=== PATIENT | male | born 1985 | race Hispanic/Latino ===

== ENCOUNTER 2017-06-02 07:15 | Observation (INO) | payer OTHER ==
[2017-06-02 07:21] VITALS: RESP 16; TEMP 97.6; BMI 23.3
[2017-06-02] MEDS ORDERED: Sodium Chloride 0.9% 1,000 ML IV STA ×2 (07:59→10:57)
--- NOTE | 2017-06-02 08:09 | ED PDOC ---
HPI: Back Time Seen by Provider: 06/02/17 07:20 Chief Complaint (Nursing): Back Pain Chief Complaint (Provider): Back Pain History Per: Patient History/Exam Limitations: no limitations Onset/Duration Of Symptoms: Days (x10) Additional Complaint(s): Tae Welch, 31 year old male with a medical history inclusive of left varicocele, presents to the ED with complaints of intermittent left flank pain occurring for 10 days prior to arrival. The patient also complains of urinary frequency, urinary urgency, and nausea. He denies vomiting, diarrhea, fever, genitourinary pain, hematuria, and has no past medical history of kidney stones. Of note, upon talking to the patient, he states his left flank pain is worsening. PMD: None provided Past Medical History Reviewed: Historical Data, Nursing Documentation, Vital Signs Vital Signs: Last Vital Signs Temp 97.6 F 06/02/17 07:20 Pulse 86 06/02/17 07:20 Resp 16 06/02/17 07:20 BP 130/76 06/02/17 07:20 Pulse Ox 99 06/02/17 07:20 - Medical History PMH: Denies: Chronic Kidney Disease Other PMH: left varicocele - Family History Family History: States: Unknown Family Hx - Social History Current smoker - smoking cessation education provided: Yes Alcohol: Social Drugs: Denies - Home Medications Home Medications: Ambulatory Orders Medication Instructions Recorded Nitrofurantoin Macrocrystals 100 mg PO BID #14 cap 06/02/17 [Macrobid] Tamsulosin [Flomax] 0.4 mg PO DAILY #14 cap 06/02/17 oxyCODONE/Acetaminophen [Percocet 1 tab PO Q6H PRN #6 tab 06/02/17 5/325 mg Tab] - Allergies Allergies/Adverse Reactions: Allergies Allergy/AdvReac Type Severity Reaction Status Date / Time No Known Allergies Allergy Verified 06/02/17 07:32 Review of Systems ROS Statement: Except As Marked, All Systems Reviewed And Found Negative Constitutional: Negative for: Fever Gastrointestinal: Positive for: Nausea, Abdominal Pain (left flank pain ). Negative for: Vomiting, Diarrhea Genitourinary Male: Positive for: Frequency (and urgency ). Negative for: Hematuria, Other (genitourinary pain) Physical Exam - Reviewed Nursing Documentation Reviewed: Yes Vital Signs Reviewed: Yes - Physical Exam Appears: Positive for: Non-toxic, No Acute Distress, Uncomfortable Head Exam: Positive for: ATRAUMATIC, NORMAL INSPECTION, NORMOCEPHALIC Skin: Positive for: Normal Color, Warm, DRY Eye Exam: Positive for: EOMI, Normal appearance, PERRL ENT: Positive for: Normal ENT Inspection Neck: Positive for: Normal, Painless ROM Cardiovascular/Chest: Positive for: Regular Rate, Rhythm Respiratory: Positive for: CNT, Normal Breath Sounds Gastrointestinal/Abdominal: Positive for: Bowel Sounds, Soft, Tenderness (left flank tenderness ) Back: Positive for: Normal Inspection Extremity: Positive for: Normal ROM Neurologic/Psych: Positive for: Alert, Oriented - Laboratory Results Result Diagrams: 06/02/17 07:45 06/02/17 07:45 - ECG O2 Sat by Pulse Oximetry: 99 (RA) Pulse Ox Interpretation: Normal Medical Decision Making Medical Decision Making: Impression: Left flank pain rule out UTI, rule out Kidney Stones Plan: * COMP Metabolic Panel Stat * CBC (With Differential) * Morphine 4 mg IV Once * Sodium Chloride 0.9% 1,000 ml IV 1,000 mls/hr * Pepcid 20 mg IVP Stat * Toradol 30 mg IV Once * Zofran Inj 4 mg IV Once * Urine Culture Stat * Urinalysis Stat * CT Abd & Pelvis W/O PO or IV Cont Stat * Inpatient Obs Order * Admit to Hospital Routine * Reevaluation - See Obvs note Scribe Attestation: Documented by Renetta Finney, acting as a scribe for Arvind Quintana MD. Provider Scribe Attestation: All medical record entries made by the Scribe were at my direction and personally dictated by me. I have reviewed the chart and agree that the record accurately reflects my personal performance of the history, physical exam, medical decision making, and the department course for this patient. I have also personally directed, reviewed, and agree with the discharge instructions and disposition. ED OBSERVATION Date of observation admission: 06/02/17 Time of observation admission: 08:01 - Observation admission statement Patient is being placed in observation because:: Time-extensive ED evaluation - Goals of Observation Goals of observation are:: Results of ED workup, and eventual disposition - Progress Note Progress Note: 06/02/17 10:[address] 06/02/17 10:34 CT report FINDINGS: LOWER THORAX: Unremarkable. LIVER: Unremarkable. No gross lesion or ductal dilatation. GALLBLADDER AND BILE DUCTS: Unremarkable. PANCREAS: Unremarkable. No gross lesion or ductal dilatation. SPLEEN: Unremarkable. ADRENALS: Unremarkable. No mass. KIDNEYS AND URETERS: Very mild left hydroureteronephrosis. No renal or ureteral calculus. 5 mm calculus seen at left bladder base, likely recently traversing the left urinary tract. No right hydronephrosis. No renal mass. VASCULATURE: Unremarkable. No aortic aneurysm. BOWEL: Unremarkable. No obstruction. No gross mural thickening. APPENDIX: Unremarkable. Normal appendix. PERITONEUM: Unremarkable. No free fluid. No free air. LYMPH NODES: Innumerable mildly enlarged lymph nodes within the small bowel mesenteric. This is consistent with a nonspecific mesenteric adenitis. . Hazy increased attenuation within a circumscribed region of the small bowel mesenteric consistent with mesenteric panniculitis, nonspecific. There are shotty subcentimeter retroperitoneal and pelvic nodes also identified. BLADDER: 5 mm calculus at left bladder base. REPRODUCTIVE: Normal prostate BONES: No acute fracture. OTHER FINDINGS: None. IMPRESSION: Mesenteric adenitis. Findings consistent with mesenteric panniculitis. Mild left hydroureteronephrosis. 5 mm calculus at left bladder base. No calculus identified within left kidney or ureter. Likely recently traversed calculus through the left urinary tract. No other significant abnormality. discussed results of CT with patient at bedside. 06/02/17 10:58 PO intake test. pt tolerated po. feels much improved. 06/02/17 11:35 Patient tolerating PO. Stable for discharge. instructed outtp follow up with urology and stay hydrated and take meds as prescrivbed 06/02/17 16:13 06/02/17 16:15 Disposition - Clinical Impression Clinical Impression: Kidney stone - Patient ED Disposition Is Patient to be Admitted: No Counseled Patient/Family Regarding: Studies Performed, Diagnosis, Need For Followup - Disposition Disposition: Routine/Home Disposition Time: 11:00 Condition: IMPROVED
[2017-06-02 08:24] LABS: BASO % 0.5 % (0.0-2.0); EOS # 0.1 K/uL (0.0-0.7); EOS % 1.2 % (0.0-4.0); HEMOGLOBIN 12.1 g/dL (12.0-18.0); LYMPH # 1.7 K/uL (1.0-4.3); LYMPH % 29.2 % (20.0-40.0); MEAN CELL VOLUME 62.7 fl (80.0-94.0); MEAN CORPUSCULAR HEMOGLOBIN 20.2 pg (27.0-31.0); MEAN CORPUSCULAR HGB CONC 32.3 g/dL (33.0-37.0); MONO # 0.5 K/uL (0.0-0.8); MONO % 7.9 % (0.0-10.0); NEUT # 3.6 K/uL (1.8-7.0); NEUT % 61.2 % (50.0-75.0); NRBC % 0.1 % (0.0-0.0); RBC 5.97 Mil/uL (4.40-5.90); RED CELL DISTRIBUTION WIDTH 16.4 % (11.5-14.5); WHITE BLOOD COUNT 5.9 K/uL (4.8-10.8)
[2017-06-02 08:32] LABS: URINE BILIRUBIN NEGATIVE (NEGATIVE); URINE BLOOD NEGATIVE (NEGATIVE); URINE CALCIUM OXALATE CRYSTALS OCC /hpf (<OCC); URINE CLARITY CLEAR (Clear); URINE COLOR YELLOW (YELLOW); URINE GLUCOSE (UA) NEG (Normal); URINE LEUKOCYTE ESTERASE NEG Leu/uL (Negative); URINE NITRATE NEGATIVE (NEGATIVE); URINE PROTEIN NEGATIVE (NEGATIVE); URINE UROBILINOGEN 0.2-1.0 mg/dL (0.2-1.0)
[2017-06-02 08:39] LABS: ALB/GLOB RATIO 1.3 (1.0-2.1); ALBUMIN 4.5 g/dL (3.5-5.0); ALT/SGPT 60 U/L (21-72); AST/SGOT 34 U/L (17-59); BLOOD UREA NITROGEN 23 mg/dl (9-20); CALCIUM 9.3 mg/dL (8.4-10.2); GFR AFRICAN-AMERICAN > 60; GFR NON-AFRICAN AMERICAN > 60
--- NOTE | 2017-06-02 10:22 | CT ---
PROCEDURE: CT Abdomen and Pelvis without intravenous contrast HISTORY: left flank pain rul eout stone COMPARISON: None. TECHNIQUE: Without contrast.. Contrast Dose: 0 Radiation dose: Total exam DLP = 512.30 mGy-cm. This CT exam was performed using one or more of the following dose reduction techniques: Automated exposure control, adjustment of the mA and/or kV according to patient size, and/or use of iterative reconstruction technique. FINDINGS: LOWER THORAX: Unremarkable. LIVER: Unremarkable. No gross lesion or ductal dilatation. GALLBLADDER AND BILE DUCTS: Unremarkable. PANCREAS: Unremarkable. No gross lesion or ductal dilatation. SPLEEN: Unremarkable. ADRENALS: Unremarkable. No mass. KIDNEYS AND URETERS: Very mild left hydroureteronephrosis. No renal or ureteral calculus. 5 mm calculus seen at left bladder base, likely recently traversing the left urinary tract. No right hydronephrosis. No renal mass. VASCULATURE: Unremarkable. No aortic aneurysm. BOWEL: Unremarkable. No obstruction. No gross mural thickening. APPENDIX: Unremarkable. Normal appendix. PERITONEUM: Unremarkable. No free fluid. No free air. LYMPH NODES: Innumerable mildly enlarged lymph nodes within the small bowel mesenteric. This is consistent with a nonspecific mesenteric adenitis. . Hazy increased attenuation within a circumscribed region of the small bowel mesenteric consistent with mesenteric panniculitis, nonspecific. There are shotty subcentimeter retroperitoneal and pelvic nodes also identified. BLADDER: 5 mm calculus at left bladder base. REPRODUCTIVE: Normal prostate BONES: No acute fracture. OTHER FINDINGS: None. IMPRESSION: Mesenteric adenitis. Findings consistent with mesenteric panniculitis. Mild left hydroureteronephrosis. 5 mm calculus at left bladder base. No calculus identified within left kidney or ureter. Likely recently traversed calculus through the left urinary tract. No other significant abnormality.
[2017-06-02 12:06] VITALS: BP 107/68; PULSE 89
[2017-06-02 16:14] VITALS: O2SAT 99
== END 2017-06-02 12:16 | disposition home or self-care (01) ==
LOC: H.ER 07:15 → H.EROBSV 08:01
PROVIDERS: ADMIT Emergency Medicine; ATTEND Emergency Medicine
DX: N13.2 Hydronephrosis with renal and ureteral calculous obstruction (principal); F17.200 Nicotine dependence, unspecified, uncomplicated; I88.0 Nonspecific mesenteric lymphadenitis; K65.4 Sclerosing mesenteritis

== ENCOUNTER 2017-10-30 07:24 | Emergency (ER) | payer OTHER ==
[2017-10-30 07:24] VITALS: BMI 23.3
[2017-10-30 07:36] VITALS: BP 134/90; PULSE 120; RESP 21; TEMP 98; O2SAT 99
[2017-10-30] MEDS ORDERED: Sodium Chloride 0.9% 1,000 ML IV STA (07:40)
[2017-10-30 08:05] LABS: BASO # 0.1 K/uL (0.0-0.2); BASO % 0.9 % (0.0-2.0); EOS # 0.1 K/uL (0.0-0.7); EOS % 1.2 % (0.0-4.0); HEMATOCRIT 37.1 % (35.0-51.0); LYMPH # 2.4 K/uL (1.0-4.3); LYMPH % 29.9 % (20.0-40.0); MEAN CORPUSCULAR HEMOGLOBIN 19.9 pg (27.0-31.0); MEAN CORPUSCULAR HGB CONC 31.6 g/dL (33.0-37.0); MEAN PLATELET VOLUME 8.7 fl (7.2-11.7); MONO # 0.6 K/uL (0.0-0.8); MONO % 7.9 % (0.0-10.0); NEUT # 4.9 K/uL (1.8-7.0); NEUT % 60.1 % (50.0-75.0); RED CELL DISTRIBUTION WIDTH 16.4 % (11.5-14.5); WHITE BLOOD COUNT 8.1 K/uL (4.8-10.8)
[2017-10-30 08:55] LABS: ALB/GLOB RATIO 1.2 (1.0-2.1); ALKALINE PHOSPHATASE 65 U/L (38-126); ALT/SGPT 44 U/L (21-72); AST/SGOT 34 U/L (17-59); BILIRUBIN,TOTAL 0.5 mg/dl (0.2-1.3); BLOOD UREA NITROGEN 22 mg/dl (9-20); CALCIUM 9.1 mg/dL (8.4-10.2); CARBON DIOXIDE 25 mmol/L (22-30); CHLORIDE 106 mmol/L (98-107); GFR AFRICAN-AMERICAN > 60; GLUCOSE,RANDOM 127 mg/dL (75-110); POTASSIUM 4.1 MMOL/L (3.6-5.0); SODIUM 142 mmol/l (132-148); TOTAL PROTEIN 8.1 G/DL (6.3-8.2)
[2017-10-30 09:29] LABS: RBC URINE 9 /hpf (0-3); URINE BILIRUBIN NEGATIVE (NEGATIVE); URINE BLOOD NEGATIVE (NEGATIVE); URINE COLOR YELLOW (YELLOW); URINE GLUCOSE (UA) NEG (Normal); URINE KETONE TRACE mg/dL (NEGATIVE); URINE LEUKOCYTE ESTERASE NEG Leu/uL (Negative); URINE PROTEIN 30 mg/dL (NEGATIVE); WBC URINE < 1 /hpf (0-5)
--- NOTE | 2017-10-30 09:53 | CT ---
PROCEDURE: CT Abdomen and Pelvis without intravenous contrast HISTORY: R flank pain hx renal colic COMPARISON: Unenhanced abdomen and pelvis CT exam 06/01/2017. TECHNIQUE: Helical CT of the abdomen and pelvis was performed without oral or intravenous contrast as per referring physician request.. Contrast Dose: None Radiation dose: Total exam DLP = 474.75 mGy-cm. This CT exam was performed using one or more of the following dose reduction techniques: Automated exposure control, adjustment of the mA and/or kV according to patient size, and/or use of iterative reconstruction technique. FINDINGS: LOWER THORAX: Unremarkable. LIVER: Unremarkable. No gross lesion or ductal dilatation. GALLBLADDER AND BILE DUCTS: Unremarkable. PANCREAS: Unremarkable. No gross lesion or ductal dilatation. SPLEEN: Unremarkable. ADRENALS: Unremarkable. No mass. KIDNEYS AND URETERS: Unremarkable. No hydronephrosis. No solid mass. VASCULATURE: Unremarkable. No aortic aneurysm. BOWEL: Unremarkable. No obstruction. No gross mural thickening. APPENDIX: Unremarkable. Normal appendix. PERITONEUM: Unremarkable. No free fluid. No free air. LYMPH NODES: Mildly enlarged lymph nodes are again seen with local mesenteric edema at the central mesenteric again suggesting mesenteric adenitis and mesenteric panniculitis. BLADDER: Unremarkable. REPRODUCTIVE: Unremarkable. BONES: No acute fracture. OTHER FINDINGS: None. IMPRESSION: 1. No radiodense urolithiasis, obstructive uropathy or perinephric reaction bilaterally. 2. Mesentery adenitis and mesenteric panniculitis again evident without significant interval change. 3. If additional abdominal or pelvic pathology remains clinically suspected a follow-up contrast abdomen and pelvis CT is advised.
--- NOTE | 2017-10-30 10:09 | ED PDOC ---
HPI: Male Pain Time Seen by Provider: 10/30/17 07:38 Chief Complaint (Nursing): Male Genitourinary Chief Complaint (Provider): flank pain History Per: Patient History/Exam Limitations: no limitations Onset/Duration Of Symptoms: Hrs (2), Sudden Onset Severity: Severe Quality Of Discomfort: Sharp Associated Symptoms: Nausea, Back Pain. denies: Fever, Chills, Vomiting, Diarrhea, Loss Of Appetite Alleviating Factors: None Additional Complaint(s): 32yo male hx renal colic on left now presents sudden onset L flank pain associated with nausea. Denies hematuria, fever, diarrhea or anterior abd pain. Past Medical History Reviewed: Historical Data, Nursing Documentation, Vital Signs Vital Signs: Last Vital Signs Temp 98.0 F 10/30/17 07:35 Pulse 120 H 10/30/17 07:35 Resp 21 10/30/17 07:35 BP 134/90 10/30/17 07:35 Pulse Ox 99 10/30/17 07:35 - Medical History PMH: Kidney Stones Denies: Chronic Kidney Disease - Family History Family History: States: Unknown Family Hx - Living Arrangements Living Arrangements: With Family - Social History Current smoker - smoking cessation education provided: No Alcohol: Occasional - Home Medications Home Medications: Ambulatory Orders Medication Instructions Recorded Nitrofurantoin Macrocrystals 100 mg PO BID #14 cap 06/02/17 [Macrobid] Tamsulosin [Flomax] 0.4 mg PO DAILY #14 cap 06/02/17 oxyCODONE/Acetaminophen [Percocet 1 tab PO Q6H PRN #6 tab 06/02/17 5/325 mg Tab] Acetaminophen with Codeine 1 each PO Q4 PRN #10 tablet 10/30/17 [Tylenol with Codeine #3 Tablet] - Allergies Allergies/Adverse Reactions: Allergies Allergy/AdvReac Type Severity Reaction Status Date / Time No Known Allergies Allergy Verified 06/02/17 07:32 Review of Systems ROS Statement: Except As Marked, All Systems Reviewed And Found Negative Constitutional: Negative for: Fever, Chills Respiratory: Negative for: Cough, Shortness of Breath Gastrointestinal: Positive for: Nausea, Abdominal Pain. Negative for: Vomiting Genitourinary Male: Negative for: Dysuria Musculoskeletal: Positive for: Back Pain. Negative for: Neck Pain Skin: Negative for: Rash, Lesions Neurological: Negative for: Weakness, Numbness, Change in Speech Psych: Negative for: Anxiety Physical Exam - Reviewed Nursing Documentation Reviewed: Yes Vital Signs Reviewed: Yes - Physical Exam Appears: Positive for: Non-toxic, Uncomfortable Head Exam: Positive for: ATRAUMATIC, NORMAL INSPECTION, NORMOCEPHALIC Skin: Positive for: Normal Color, Warm, DRY Eye Exam: Positive for: EOMI, Normal appearance, PERRL ENT: Positive for: Normal ENT Inspection Neck: Positive for: Normal, Painless ROM Cardiovascular/Chest: Positive for: Regular Rate, Rhythm Respiratory: Positive for: CNT, Normal Breath Sounds Gastrointestinal/Abdominal: Positive for: Bowel Sounds, Soft, Tenderness (R sided) Back: Positive for: R CVA Tenderness Extremity: Positive for: Normal ROM Neurologic/Psych: Positive for: Alert, Oriented. Negative for: Motor/Sensory Deficits - Laboratory Results Result Diagrams: 10/30/17 07:50 10/30/17 07:42 - ECG O2 Sat by Pulse Oximetry: 99 Medical Decision Making Medical Decision Making: workup for renal colic was initiated Analgesics, IVF, labs and CT imaging without contrast ordered Monitored frequently for improvement CT results d/w patient, who already felt better. Possible spontaneous passage of stone in interim. Risk factors for stone formation discussed and pt wished to be discharged. He had followup in [facility] w urology. Strain urine. Disposition - Clinical Impression Clinical Impression: Flank pain - Patient ED Disposition Is Patient to be Admitted: No Counseled Patient/Family Regarding: Studies Performed, Diagnosis, Need For Followup, Rx Given - Disposition Referrals: Carlo Guillen MD [Staff Provider] - FAMILY PROVIDER,NO [Primary Care Provider] - Disposition: Routine/Home Disposition Time: 09:50 Condition: STABLE Additional Instructions: Drink plenty of fluids, avoid caffeine or alcohol. Take pain medicine only as needed and directed. See urologist for further testing, return to ER for any new or worse symptoms. Prescriptions: Acetaminophen with Codeine [Tylenol with Codeine #3 Tablet] 1 each PO Q4 PRN # 10 tablet PRN Reason: Pain, Severe (8-10) Instructions: Renal Colic (ED), Flank Pain (ED) Forms: [email or web address] (Portuguese)
== END 2017-10-30 10:15 | disposition home or self-care (01) ==
LOC: H.ER 07:24
DX: N23 Unspecified renal colic (principal); R10.9 Unspecified abdominal pain
CPT/HCPCS: 74176; 80053; 81003; 85025; 96361; 96374; 96375; 99283; J1885; J2405; J7040